=== PATIENT | male | born 1950 | race Caucasian/White ===

== ENCOUNTER 2016-08-13 16:54 | Emergency (ER) | payer BC ==
[~2016-08-13] VITALS: Ht 177.8 cm; Wt 106.6 kg
[2016-08-13] MEDS ORDERED: ASPIRIN 81MG TA81 MG PO (17:46)
[2016-08-13] MEDS ORDERED: AMLODIPINE BESY1 C14 PO (17:46)
[2016-08-13 18:56] LABS: HEMOGLOBIN 14.8 g/dL (14.1-18.0); LYMPH # 2.7 K/mm3 (0.7-4.5); LYMPH % 28.1 % (10-50)
[2016-08-13 19:12] LABS: BUN 22 mg/dL (7-18)
--- NOTE | 2016-08-13 19:12 | Emergency Room Report ---
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 N Clinical Suspician of Infection? N Mental Status: 1 - Regular (Normal Baseline) Sepsis Risk:Low Sepsis Risk Have you (or family members/close friends) recently traveled outside the [place]? N If Yes, where/when: Have you had exposure to infectious disease within the past month? N TB? Other? Specify: Source patient, RN notes reviewed, family, RN/MD Exam Limitations no limitations Comment This is a 65-year-old male patient presenting to the emergency room with left-sided chest pain, off-and-on for the past 10 days. Patient has had recent travel or exposure to sick contacts. Patient also denies any shots of breath, radiation of the chest pain, diaphoresis or any previous similar episodes in the past. Patient describes the pain as "squeezing". It is not associated with activity, nor is it eased up by rest. ALLERGIES Coded Allergies: azithromycin (From ZITHROMAX) (08/13/16) Home Medications Reported Medications AMLODIPINE BESYLATE/BENAZEPRIL (Amlodipine-Benazepril 5-20 MG) 1 CAP PO QHS #90 ASPIRIN (Aspirin) 81 MG PO DAILY History Medical History General CAD? No Angina: No AL: No Hypertension? Yes Hyperlipidemia? Yes CHF? No DVT? No PE? No COPD? No Asthma? No Anemia? No GERD? No Gastric ulcers? No GI Bleed? No Hernia? No Thyroid Problems? No Hypothyroidism? No CVA? No Seizures? No Diabetes? No Renal Insuffiency? No End Stage Renal Disease? No UTI? No Stones? No BPH? No Arthritis? No Migraines? No Cataracts? No Glaucoma? No MRSA? No Depression? No More? No Immunization Hx DT/Tetanus 1-4 Years Ago Surgical Hx Previous Surgery?Y COLONOSCOPY Social History Smoking Hx Smoker: Former Smoker Tobacco: No Are you/the child exposed to second-hand smoke: No Alcohol Alcohol: No Review of Systems All Other Systems Reviewed and Negative Cardiovascular chest pain Physical Exam Vital Signs Vital Signs Date Time Temp Pulse Resp B/P Pulse O2 O2 Flow FiO2 Ox Delivery Rate 08/13 2003 97.9 74 20 150/94 93 08/13 2000 97.9 74 20 150/94 93 08/13 1917 97.8 70 20 144/91 95 08/13 1740 98.1 84 20 151/81 96 General Appearance normal appearance, WD/WN, no apparent distress Neck normal inspection, non-tender, supple, full range of motion Respiratory Status Yes: trachea midline, chest symmetrical, non tender chest. No: respiratory distress. Lung Sounds bilateral: normal breath sounds, lungs clear. 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 No Comment Upon reevaluation the patient appears medically stable, minimally symptomatic. Advised patient results obtained, need to follow-up with waste disposal leakage tester for additional outpatient workup in the next couple days. Results/Orders Laboratory Tests 08/13/161847: B-Natriuretic Peptide 8 08/13/161847: Sodium 136, Potassium 3.7, Chloride 101, Carbon Dioxide 25, BUN 22 H, Creatinine 0.9, Estimated Creat Clear 125, Estimated GFR (MDRD) 85, Glucose 97, Calcium 8.7, Total Bilirubin 0.3, AST 18, ALT 41, Alkaline Phosphatase 48, Creatine Kinase 147, CK and CKMB Interp 2.0, Troponin I < 0.02, Total Protein 7.6, Albumin 3.9, Globulin 3.7 H, Albumin/Globulin Ratio 1.1, D-Dimer 255, WBC 9.6, RBC 4.84, Hgb 14.8, Hct 42.7, MCV 88.2, RDW 14.0, Plt Count 318, MPV 8.2, Gran % 61.9, Gran # 6.0, Lymphocytes % 28.1, Monocytes % 4.1, Eosinophils % 4.7, Basophils % 1.2, Lymphocytes # 2.7, Monocytes # 0.4, Eosinophils # 0.5 H, Basophils # 0.1, PUBS MCHC 34.8, MCH 30.6 Current Medication Orders Sig/Rebeca Start time Last Medication Dose Route Stop Time Status Admin Sodium Chloride 10 ML PRN PRN 08/13 183 DCD IV 08/14 1826 Orders Procedure Date/time Status 12 LEAD EKG-FLOR (INITIAL) 08/13 1904 Active D-DIMER 08/13 182 Complete BRAIN NATRIURETIC PEPTIDE 08/13 182 Complete ELECTROCARDIOGRAM REQUEST 08/13 182 Active OXYGEN PER NURSE 08/13 182 Active ELECTRICAL REPAIRER 08/13 182 Active TROPONIN I 08/13 182 Complete CPK 08/13 182 Complete COMPLETE METABOLIC PANEL 08/13 182 Complete CKMB 08/13 182 Complete CBC WITH AUTO DIFF 08/13 1825 Complete CM/EKG CM/twister operator Rhythm Normal Sinus Rhythm Rate 85 Ectopy No Comments No acute ischemic changes EKG rate, NSR, rhythm, no evid. of ischemic chgs, no ectopy, normal QRS, normal CA, no EKG for comparison, non-spec. ST/Twave chgs, ST elevation, ST depression, LBBB, RBBB, ectopy, abnormal Q waves XRAY/CT/US XRAY/CT/US XRAY chest XR interpretation by reviewed by me Xray Results no infiltrates, normal heart size, normal lung inflation derrick Departure Departure Time of Disposition 1954 Disposition DC Home or Self Care(routine) Clinical Impression Primary Impression: Chest pain Qualifiers: Chest pain type: unspecified Qualified Code: R07.9 - Chest pain, unspecified Condition STABLE Referrals rEich PANCHAL,A.C. (Family): Tomorrow-Call Office as previously scheduled. Patient Instructions DI for Atypical Chest Pain Additional Instructions Please see Dr Jung in the office tomorrow as already scheduled. Discharge Counseling Counseled pt/family regarding diagnosis, test results, medications/RX, home care, follow up needs Comment Please see Dr Jung in the office tomorrow as already scheduled. ED Critical Care Critical Care No at [phone]
--- NOTE | 2016-08-13 19:12 | Emergency Room Report ---
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 N Clinical Suspician of Infection? N Mental Status: 1 - Regular (Normal Baseline) Sepsis Risk:Low Sepsis Risk Have you (or family members/close friends) recently traveled outside the [place]? N If Yes, where/when: Have you had exposure to infectious disease within the past month? N TB? Other? Specify: Source patient, RN notes reviewed, family, RN/MD Exam Limitations no limitations Comment This is a 65-year-old male patient presenting to the emergency room with left-sided chest pain, off-and-on for the past 10 days. Patient has had recent travel or exposure to sick contacts. Patient also denies any shots of breath, radiation of the chest pain, diaphoresis or any previous similar episodes in the past. Patient describes the pain as "squeezing". It is not associated with activity, nor is it eased up by rest. ALLERGIES Coded Allergies: azithromycin (From ZITHROMAX) (08/13/16) Home Medications Reported Medications AMLODIPINE BESYLATE/BENAZEPRIL (Amlodipine-Benazepril 5-20 MG) 1 CAP PO QHS #90 ASPIRIN (Aspirin) 81 MG PO DAILY History Medical History General CAD? No Angina: No [place]: No Hypertension? Yes Hyperlipidemia? Yes CHF? No DVT? No PE? No COPD? No Asthma? No Anemia? No GERD? No Gastric ulcers? No GI Bleed? No Hernia? No Thyroid Problems? No Hypothyroidism? No CVA? No Seizures? No Diabetes? No Renal Insuffiency? No End Stage Renal Disease? No UTI? No Stones? No BPH? No Arthritis? No Migraines? No Cataracts? No Glaucoma? No MRSA? No Depression? No More? No Immunization Hx DT/Tetanus 1-4 Years Ago Surgical Hx Previous Surgery?Y COLONOSCOPY Social History Smoking Hx Smoker: Former Smoker Tobacco: No Are you/the child exposed to second-hand smoke: No Alcohol Alcohol: No Review of Systems All Other Systems Reviewed and Negative Cardiovascular chest pain Physical Exam Vital Signs Vital Signs Date Time Temp Pulse Resp B/P Pulse O2 O2 Flow FiO2 Ox Delivery Rate 08/13 2003 97.9 74 20 150/94 93 08/13 2000 97.9 74 20 150/94 93 08/13 1917 97.8 70 20 144/91 95 08/13 1740 98.1 84 20 151/81 96 General Appearance normal appearance, WD/WN, no apparent distress Neck normal inspection, non-tender, supple, full range of motion Respiratory Status Yes: trachea midline, chest symmetrical, non tender chest. No: respiratory distress. Lung Sounds bilateral: normal breath sounds, lungs clear. 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 No Comment Upon reevaluation the patient appears medically stable, minimally symptomatic. Advised patient results obtained, need to follow-up with sales support consultant for additional outpatient workup in the next couple days. Results/Orders Laboratory Tests 08/13/161847: B-Natriuretic Peptide 8 08/13/161847: Sodium 136, Potassium 3.7, Chloride 101, Carbon Dioxide 25, BUN 22 H, Creatinine 0.9, Estimated Creat Clear 125, Estimated GFR (MDRD) 85, Glucose 97, Calcium 8.7, Total Bilirubin 0.3, AST 18, ALT 41, Alkaline Phosphatase 48, Creatine Kinase 147, CK and CKMB Interp 2.0, Troponin I < 0.02, Total Protein 7.6, Albumin 3.9, Globulin 3.7 H, Albumin/Globulin Ratio 1.1, D-Dimer 255, WBC 9.6, RBC 4.84, Hgb 14.8, Hct 42.7, MCV 88.2, RDW 14.0, Plt Count 318, MPV 8.2, Gran % 61.9, Gran # 6.0, Lymphocytes % 28.1, Monocytes % 4.1, Eosinophils % 4.7, Basophils % 1.2, Lymphocytes # 2.7, Monocytes # 0.4, Eosinophils # 0.5 H, Basophils # 0.1, PUBS MCHC 34.8, MCH 30.6 Current Medication Orders Sig/Rebeca Start time Last Medication Dose Route Stop Time Status Admin Sodium Chloride 10 ML PRN PRN 08/13 183 DCD IV 08/14 1826 Orders Procedure Date/time Status 12 LEAD EKG-FLOR (INITIAL) 08/13 1904 Active D-DIMER 08/13 182 Complete BRAIN NATRIURETIC PEPTIDE 08/13 182 Complete ELECTROCARDIOGRAM REQUEST 08/13 182 Active OXYGEN PER NURSE 08/13 182 Active CENTRAL PROCESSING TECH 08/13 182 Active TROPONIN I 08/13 182 Complete CPK 08/13 182 Complete COMPLETE METABOLIC PANEL 08/13 182 Complete CKMB 08/13 182 Complete CBC WITH AUTO DIFF 08/13 1825 Complete CM/EKG 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 of ischemic chgs, no ectopy, normal QRS, normal SC, no EKG for comparison, non-spec. ST/Twave chgs, ST elevation, ST depression, LBBB, RBBB, ectopy, abnormal Q waves XRAY/CT/US XRAY/CT/US XRAY chest XR interpretation by reviewed by me Xray Results no infiltrates, normal heart size, normal lung inflation derrick Departure Departure Time of Disposition 1954 Disposition DC Home or Self Care(routine) Clinical Impression Primary Impression: Chest pain Qualifiers: Chest pain type: unspecified Qualified Code: R07.9 - Chest pain, unspecified Condition STABLE Referrals Erich PANCHAL,A.C. (Family): Tomorrow-Call Office as previously scheduled. Patient Instructions DI for Atypical Chest Pain Additional Instructions Please see Dr Jung in the office tomorrow as already scheduled. Discharge Counseling Counseled pt/family regarding diagnosis, test results, medications/RX, home care, follow up needs Comment Please see Dr Jung in the office tomorrow as already scheduled. ED Critical Care Critical Care No at [phone]
[2016-08-13 19:16] LABS: GFR (ESTIMATED) 85 ML/MIN (>60)
[2016-08-13 20:04] VITALS: BP 150/94
--- NOTE | 2016-08-14 08:28 | RADIOLOGY REPORT PS360 ---
CHEST(2 VIEWS-NOT PORTABLE) HISTORY: Left-sided chest pain with shortness of breath, smoker LEFT SIDED CHEST SPASMS, SHORTNESS OF BREATH COMPARISON: None available FINDINGS: The cardiomediastinal silhouette and pulmonary vascularity are within normal limits. Left hemidiaphragm is elevated. Patchy density is present in the left lung base may be due to an area of atelectasis or infiltrate. There is evidence of old granulomatous disease. Minimal atelectatic or fibrotic changes are present in the right lung base. No acute bony anomalies. IMPRESSION: 1. Elevated left hemidiaphragm with patchy atelectasis or infiltrate in the left lung base. 2. Minimal right basilar atelectasis
== END 2016-08-13 20:05 | disposition home or self-care (01) ==
LOC: ER 16:54
PROVIDERS: Emergency Medicine
DX: R07.9 Chest pain, unspecified (principal); I10 Essential (primary) hypertension; Z87.891 Personal history of nicotine dependence